=== PATIENT | female | born 1980 | race American Indian/Alaskan Native ===

== ENCOUNTER 2018-05-11 05:25 | Inpatient (IN) | payer OTHER ==
[2015-08-20 21:39] VITALS: BMI 29.4
[2018-05-11] MEDS ORDERED: Lactated Ringer's 1,000 ML IV ONE (06:07)
[2018-05-11] MEDS ORDERED: Sodium Citrate/Citric Acid 15 ml Sol PO ONE (06:07)
[2018-05-11] MEDS ORDERED: cefOXitin IV 2 gm in Dextrose 2 GM/50 ML BAG IVPB ONE (06:07)
[2018-05-11 06:33] LABS: BASO % 0.5 % (0.0-2.0); EOS # 0.2 K/uL (0.0-0.7); EOS % 2.1 % (0.0-4.0); HEMOGLOBIN 11.5 g/dL (11.0-16.0); LYMPH # 1.8 K/uL (1.0-4.3); LYMPH % 24.4 % (20.0-40.0); MEAN CELL VOLUME 88.3 fL (81.0-99.0); MEAN CORPUSCULAR HEMOGLOBIN 29.2 pg (27.0-31.0); MEAN PLATELET VOLUME 9.9 fL (7.2-11.7); MONO # 0.7 K/uL (0.0-0.8); NEUT # 4.7 K/uL (1.8-7.0); RBC 3.94 Mil/uL (3.80-5.20); RED CELL DISTRIBUTION WIDTH 14.5 % (11.5-14.5); WHITE BLOOD COUNT 7.3 K/uL (4.8-10.8)
[2018-05-11] MEDS ORDERED: cefOXitin IV 2 gm in Saline 2 GM/50 ML BAG IVPB ONE (06:54)
[2018-05-11] MEDS ORDERED: Oxytocin 20 units in LR 2,000 ML IV ONE (06:54)
[2018-05-11] MEDS ORDERED: Sodium Citrate/Citric Acid 15 ml Sol ONE (06:54)
[2018-05-11 06:57] LABS: SQUAMOUS EPITHIAL 16 /hpf (0-5); URINE BACTERIA MOD (<OCC); URINE BILIRUBIN NEGATIVE (NEGATIVE); URINE BLOOD NEGATIVE (NEGATIVE); URINE CLARITY Hazy (Clear); URINE COLOR Yellow (YELLOW); URINE GLUCOSE (UA) NORMAL (Normal); URINE LEUKOCYTE ESTERASE 3+ Leu/uL (Negative); URINE PROTEIN NEGATIVE (NEGATIVE); URINE UROBILINOGEN NORMAL mg/dL (0.2-1.0)
[2018-05-11] MEDS ORDERED: Triamcinolone Acetonide 40 mg/mL Inj IAA ONE (07:32)
[2018-05-11] MEDS ORDERED: Morphine 1 mg/ml preservative-free Inj(Duramorph) ONE (07:38)
[2018-05-11 08:23] LABS: ALB/GLOB RATIO 1.2 (1.0-2.1); ALBUMIN 3.8 g/dL (3.5-5.0); ALT/SGPT 22 U/L (9-52); AST/SGOT 22 U/L (14-36); BLOOD UREA NITROGEN 8 mg/dL (7-17); CALCIUM 9.4 mg/dl (8.6-10.4); GFR NON-AFRICAN AMERICAN > 60
[2018-05-11] MEDS: Prenatal Multivit/Folic Acid/Iron Tab PO SCH (10:56)
--- NOTE | 2018-05-11 15:55 | OP ---
PROCEDURE DATE: 05/11/2018 PREOPERATIVE DIAGNOSES: Term intrauterine , previous section, jeyson in labor. POSTOPERATIVE DIAGNOSES: Term intrauterine , previous section, jeyson in labor. PROCEDURE PERFORMED: Repeat low transverse section, removal of old keloid skin incision. SURGEON: Flower Bloom MD GYPSUM BLOCK SETTER: CATHY Rome OPERATIVE FINDINGS: Live female infant. Apgars 9 and 9. Weight is 6 pounds plus. Slip Injector And Applicator present for the delivery. Normal-appearing uterus, tubes, and ovaries bilaterally. COMPLICATIONS: None. TYPE OF ANESTHESIA: Spinal. ESTIMATED BLOOD LOSS: 800 mL. INDICATIONS: The patient is a G2, P1, at term with previous section came in complaining of contraction. The patient was examined and found to be in early labor. Risks, benefits, alternatives, and indications of repeat section were discussed with the patient in addition to keloid skin incision. Consent was obtained. DESCRIPTION OF PROCEDURE: The patient was transferred to the operating room where she was given spinal anesthesia. Once it was found to be adequate, the patient was placed on the operating table in the dorsal supine position. The patient was prepped and draped in the usual sterile fashion. A time-out confirmed correct patient and correct procedure. The patient was given preoperative prophylactic antibiotics. A Pfannenstiel skin incision was made superiorly and inferiorly to the above keloid incision, and the skin incision was removed using an Allis clamp and Bovie device. The skin incision was removed and sent to pathology. The subcutaneous fat was then incised with the Bovie, carried down to the underlying fascia with the Bovie. The fascia was incised in the midline. The incision was extended laterally with the Bovie. The inferior aspect of the fascial incision was grasped with Allis and More clamps, and the underlying rectus muscle was dissected off bluntly. Attention was then turned to the superior aspect of the incision which in a similar fashion, was grasped with Allis and More clamps and the underlying rectus muscles were dissected off bluntly. The rectus muscles were then bluntly in the midline. The peritoneum was identified in clear space. The incision was extended laterally and superiorly until there was good visualization of the bladder. The lower end of the Edward was then reinserted. The vesicouterine peritoneum was incised with Metzenbaum scissors and then incision was extended laterally. The bladder flap was created digitally and the lower end of the Orlando was then reinserted. The lower uterine segment was incised in a transverse fashion. Uterine incision was extended laterally with bandage scissors. The surgeon's hand entered the uterine cavity. Amniotic membranes were ruptured and clear fluid was noted. Following this, the 's head was delivered atraumatically, followed by delivery of the shoulders, followed by delivery of body. Both oral and nasal passages of the baby were bulb suctioned. The umbilical cord was clamped and cut. Baby was handed off to the awaiting pin drafter operator. Cord blood and cord gases were collected and sent x2. The placenta was then delivered manually. The uterus was exteriorized of all clots and debris. The uterine incision was repaired with 0 Vicryl in a running continuous locked fashion. A second layer of 0 Vicryl was used to close the uterus in a running imbricating manner. Following the delivery, clamping of the cord, obtaining of cord blood and cord gases, delivery of the placenta and closing of the uterus. There were normal tubes and ovaries. The uterus then returned to the abdomen. Pericolic gutters were cleared of all clots and debris. There was good hemostasis in the uterine incision site. The peritoneum was reapproximated with 2-0 chromic in interrupted manner. The rectus was reapproximated and closed with 2-0 chromic in interrupted manner. The fascia was reapproximated with 0 Vicryl in a running continuous fashion. The subcutaneous space was washed and irrigated. There was good hemostasis noted. The skin was reapproximated and closed with 4-0 Monocryl in a running subcuticular fashion. Dermabond was applied to the incision. At the end of the procedure, all needle, sponge and instrument counts were noted to be correct x2. The patient tolerated the procedure well and was transferred to the recovery room in stable condition. Flower Bloom MD
[2018-05-12 07:09] LABS: HEMOGLOBIN 10.4 g/dL (11.0-16.0); MEAN CELL VOLUME 86.5 fL (81.0-99.0); MEAN CORPUSCULAR HEMOGLOBIN 28.9 pg (27.0-31.0); MEAN CORPUSCULAR HGB CONC 33.4 g/dL (33.0-37.0); MEAN PLATELET VOLUME 10.1 fL (7.2-11.7); RBC 3.61 Mil/uL (3.80-5.20); RED CELL DISTRIBUTION WIDTH 14.4 % (11.5-14.5); WHITE BLOOD COUNT 13.6 K/uL (4.8-10.8)
[2018-05-12 08:14] VITALS: RESP 18
[2018-05-12] MEDS: Oxycodone/Acetaminophen 5/325 mg Tab PO PRN ×2 (08:18→16:04)
[2018-05-12] MEDS: Simethicone 80 mg Chewtab PO SCH ×4 (09:29→21:44)
[2018-05-12] MEDS: Prenatal Multivit/Folic Acid/Iron Tab PO SCH (09:29)
--- NOTE | 2018-05-12 12:31 | OBPPN ---
Datetime: 05/12/2018 07:26 PP Pain Prov: Within normal limits PP Nausea Prov: Denies (Annotations: Data stored by CPN on behalf of user) PP Flatus Prov: No PP BM Prov: No PP Heart Prov: Normal PP Lungs Prov: Normal PP Abdomen/Uterus Prov: Normal PP Lochia Prov: Normal PP Extremities Prov: Normal PP C/S Incision Prov: Normal PP Comments Phys Exam Prov: Abdomen: Soft, appropriately tender (s/p repeat X1), fundus is firm and at the umbilicus. Pressure dressing is clean, dry and intact. Abdominal binder is placed. PP Impression Prov: Normal progression PP Plan Prov: Continue present management PP Progress Note Prov: Patient was seen and examined at bedside. Patient was resting comfortably in chair in no acute distress. Patient reports that she is doing well and at a much faster recovery comp are to her first . Patient states that her pain is well- controlled. Patient's babcock was rem richa this am. Patient is tolerating liquid. Patient denies symptoms of fever, chills, nausea, vomitin g, chest pain, palpitations, SOB, dizziness and calf tenderness VS: See above PE: See above Labs: 7.3>11.5/34.8<127 13.6>10.4/31.3<134 B+, Rubella immune A/P: Patient is a 38 year old female at 40 weeks who is now , who is s/p repeat C-s ection x1, POD #1 1. Stable, Afebrile, pain well controlled 2. Babcock out, voiding trial to follow 3. H/H stable 4. Monitor for bowel function 5. Encourage PO hydration and ambulation 6. Continue to encourage breast feeding 7. Continue with present management 8. Possible D/C tomorrow Plans discussed with Dr. Wolf Fairchild DO, PGY-2 agree iwth aoe pt seen adn exmaiend pain magent enourage ambauting dc iv reuglar diet encoarbe breage sfeeding
[2018-05-13] MEDS: Oxycodone/Acetaminophen 5/325 mg Tab PO PRN ×2 (00:17→13:09)
[2018-05-13] MEDS: Prenatal Multivit/Folic Acid/Iron Tab PO SCH (09:38)
[2018-05-13] MEDS: Simethicone 80 mg Chewtab PO SCH ×4 (09:38→21:37)
[2018-05-14 07:39] VITALS: BP 117/72; TEMP 98.7; O2SAT 99
--- NOTE | 2018-05-14 08:07 | OBPPN ---
Datetime: 05/14/2018 07:58 PP Pain Prov: Within normal limits PP Nausea Prov: Denies PP Flatus Prov: Yes PP BM Prov: Yes PP Breasts Prov: Normal PP Heart Prov: Normal PP Lungs Prov: Normal PP Abdomen/Uterus Prov: Normal PP Lochia Prov: Normal PP Vulva/Perineum Prov: Not Done PP CVA Tenderness Prov: Normal PP Extremities Prov: Normal PP C/S Incision Prov: Normal PP Progress Prov: Normal PP Comments Phys Exam Prov: Abdomen: Soft. Non distended. Incision with subC closure: steri strips i n place; clean, dry and intact. Minimasl lochia rubra Extremties: no calf tenderness, edema All other systems reviewed and are negative PP Impression Prov: Normal progression PP Plan Prov: Discharge PP Progress Note Prov: This is a private patient o0f Dr. Bloom. Asked rto round on patient Patient recieved in bed, room 452, . Mother present. Patient in good spirits; denies headache, dizziness, lightheadedness, nausea, vomiting. Ambulating and voiding without difficulty. P.E.: as above. WD in NAD. Awake, alert, oriented to time, person and place. Pleasant and coopera tive - Rh (+) Assessment: POD#3, 38 y.o. P2, S/P repeat C/S. Afebrile, vital signs stable. Undecidee re: contrac eption. Clinically stable. Plan: 1) Discharge home 2) See full discharge instructions Vital Signs Provider PP: Reviewed; Within Normal Limits
[2018-05-14] MEDS: Prenatal Multivit/Folic Acid/Iron Tab PO SCH (09:13)
[2018-05-14] MEDS: Simethicone 80 mg Chewtab PO SCH (09:13)
[2018-05-14 16:09] VITALS: PULSE 53
== END 2018-05-14 12:00 | disposition home or self-care (01) | DRG 788 ==
LOC: C.EROB 05:25 → C.4D 06:08 → C.4M 10:50
PROVIDERS: ADMIT Obstetrics & Gynecology; ATTEND Obstetrics & Gynecology
PROC: 10D00Z1 Extraction of Products of Conception, Low, Open Approach (ICD-10-PCS; principal; 2018-05-11)
PROC: 0HB7XZZ Excision of Abdomen Skin, External Approach (ICD-10-PCS; 2018-05-11)
DX: O34.211 Maternal care for low transverse scar from previous cesarean delivery (principal); O99.72 Diseases of the skin and subcutaneous tissue complicating childbirth; Z37.0 Single live birth; Z3A.40 40 weeks gestation of pregnancy; L91.0 Hypertrophic scar